=== PATIENT | female | born 1970 | race American Indian/Alaskan Native ===

== ENCOUNTER 2017-07-01 20:22 | Emergency (ER) | payer OTHER ==
[2017-07-01 20:26] VITALS: BP 149/85; PULSE 77; RESP 16; TEMP 98.9; O2SAT 98
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
== END 2017-07-01 22:37 | disposition home or self-care (01) ==
LOC: ED 20:22
DX: M54.9 Dorsalgia, unspecified (principal)
CPT/HCPCS: 72070; 96372; 99284; J1885

== ENCOUNTER 2018-07-07 17:30 | Emergency (ER) | payer OTHER ==
[2018-07-07 17:49] VITALS: BMI 39.4
[2018-07-07 17:50] VITALS: TEMP 98.7; O2SAT 100
--- NOTE | 2018-07-07 18:17 | ED PDOC ---
Arrival/HPI - General Chief Complaint: Upper Extremity Problem/Injury Time Seen by Provider: 07/07/18 17:37 Historian: Patient - History of Present Illness Narrative History of Present Illness (Text): 07/07/18 18:15 48yo female with no pmhx who present with complaint of pain that started from her wrist to her elbow and then her shoulder and then back down to her proximal forearm. states pain started intermittently this morning. Did not take any analgesic. 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 Denies focal weakness, trauma, chest pain, SOB, dizziness, redness, swelling, any other complaint. Past Medical History - Provider Review Nursing Documentation Reviewed: Yes - Infectious Disease Hx of Infectious Diseases: None - Psychiatric Hx Substance Use: No - Anesthesia Hx Anesthesia: No Hx Anesthesia Reactions: No Hx Malignant Hyperthermia: No Family/Social History - Physician Review Nursing Documentation Reviewed: Yes Family/Social History: Unknown Family HX Smoking Status: Never Smoked Hx Alcohol Use: No Hx Substance Use: No Allergies/Home Meds Allergies/Adverse Reactions: Allergies No Known Allergies Allergy (Verified 07/01/17 20:26) Review of Systems - Physician Review All systems were reviewed & negative as marked: Yes - Review of Systems Constitutional: Normal Eyes: Normal ENT: Normal Respiratory: Normal Cardiovascular: Normal Gastrointestinal: Normal Genitourinary Female: Normal Musculoskeletal: Arthralgias (Left arm) Skin: Normal Neurological: Normal Endocrine: Normal Hemo/Lymphatic: Normal Psychiatric: Normal Physical Exam Vital Signs Reviewed: Yes Vital Signs Temp Pulse Resp BP Pulse Ox 07/07/18 17:49 98.7 F 72 17 159/90 H 100 Temperature: Afebrile Blood Pressure: Normal Pulse: Regular Respiratory Rate: Normal Appearance: Positive for: Well-Appearing, Non-Toxic, Comfortable Pain Distress: None Mental Status: Positive for: Alert and Oriented X 3 Finger Stick Blood Glucose: 75 - Systems Exam Head: Present: Atraumatic, Normocephalic Pupils: Present: PERRL Extroacular Muscles: Present: EOMI Conjunctiva: Present: Normal Mouth: Present: Moist Mucous Membranes Neck: Present: Normal Range of Motion Respiratory/Chest: Present: Clear to Auscultation, Good Air Exchange. No: Respiratory Distress, Accessory Muscle Use Cardiovascular: Present: Regular Rate and Rhythm, Normal S1, S2. No: Murmurs Abdomen: No: Tenderness, Distention, Peritoneal Signs Back: Present: Normal Inspection Upper Extremity: Present: Normal Inspection, Normal ROM, NORMAL PULSES, Neurovascularly Intact, Capillary Refill < 2s, Norm 2-Pt Discrimination, Other (Negative Phalen/tinnel test). No: Cyanosis, Edema, Tenderness, Swelling, Erythema, Temperature Abnormalties Lower Extremity: Present: Normal Inspection. No: Edema Neurological: Present: GCS=15, CN II-XII Intact, Speech Normal Skin: Present: Warm, Dry, Normal Color. No: Rashes Psychiatric: Present: Alert, Oriented x 3, Normal Insight, Normal Concentration Medical Decision Making ED Course and Treatment: 07/08/18 01:32 PT in ED for stated history. She had no focal neurological deficit in ED. Her strength on her left arm was 5/5. EKG NSR @ 64bpm. Left shoulder/elbow/wrist - No acute finding All result was DW the pt. she was treated and DC home with Lyrica. Referred to a neurologist - RAD Interpretation Radiology Orders: 07/07/18 17:52 SHOULDER LEFT [RAD] Stat 07/07/18 17:53 ELBOW LEFT 3 VIEWS ROUTINE [RAD] Stat WRIST, LEFT 3 VIEWS [RAD] Stat Disposition/Present on Arrival - Present on Arrival Any Indicators Present on Arrival: No History of DVT/PE: No History of Uncontrolled Diabetes: No Urinary Catheter: No History of Decub. Ulcer: No History Surgical Site Infection Following: None - Disposition Have Diagnosis and Disposition been Completed?: Yes Diagnosis: Arm pain Disposition: HOME/ ROUTINE Disposition Time: 19:30 Patient Plan: Discharge Condition: STABLE Discharge Instructions (ExitCare): Muscle and Bone Pain (DC) Additional Instructions: Follow up with your Doctor/Neurologist Return to ED for any worsening symptoms Prescriptions: Pregabalin [Lyrica] 75 mg PO BID #15 cap Referrals: Law Saleem MD [Staff Provider] - Follow up with primary Forms: [employer] (Vietnamese)
[2018-07-07 19:54] VITALS: BP 138/69; PULSE 68; RESP 18
--- NOTE | 2018-07-07 23:21 | CARD ---
APPROVED REPORT Date of service: 07/07/2018 EKG Measurement Heart [id number] <Conclusion> Normal sinus rhythm Normal ECG
--- NOTE | 2018-07-08 12:08 | RAD ---
Date of service: 07/07/2018 PROCEDURE: Radiographs of the Left Shoulder HISTORY: shoulder pain COMPARISON: No prior. FINDINGS: BONES: Normal. No fracture. JOINTS: Normal. Glenohumeral and acromioclavicular joints preserved. No osteoarthritis. SOFT TISSUES: Normal. OTHER FINDINGS: None. IMPRESSION: Normal radiographs of the left shoulder.
--- NOTE | 2018-07-08 12:09 | RAD ---
Date of service: 07/07/2018 PROCEDURE: Radiographs of the left elbow. HISTORY: elbow pain COMPARISON: No prior. FINDINGS: BONES: Normal. No fracture. JOINTS: Normal. No osteoarthritis. SOFT TISSUES: Normal. JOINT EFFUSION: None. OTHER FINDINGS: None IMPRESSION: Unremarkable radiographs of the left elbow.
--- NOTE | 2018-07-08 12:10 | RAD ---
Date of service: 07/07/2018 PROCEDURE: Left Wrist Radiographs. HISTORY: wrist pain COMPARISON: None. FINDINGS: BONES: Normal. No fracture. JOINTS: Normal. No dislocation. SOFT TISSUES: Normal. OTHER FINDINGS: None. IMPRESSION: Normal left wrist radiographs.
== END 2018-07-07 20:21 | disposition home or self-care (01) ==
LOC: ED 17:30
DX: M79.602 Pain in left arm (principal)